=== PATIENT | female | born 1995 | race African-American/Black ===

== ENCOUNTER 2017-02-02 09:48 | Emergency (ER) | payer OTHER ==
[~2017-02-02] VITALS: Ht 152.4 cm; Wt 77.5 kg
[~2017-02-02 09:48] MED LIST: ADVAIR 100/501 DISK IH; COLACE100 MG PO; DULERA 200 MCG/13 GM IH; PREDNISONE50 MG PO; PROVENTIL,2.5 MG/3 M IH; SINGULAIR10 MG PO; VENTOLIN HFA18 GM IH; ZITHROMAX250 MG PO
[2017-02-02 11:24] LABS: INFLUENZA A VIRAL ANTIGEN NEGATIVE; INFLUENZA B VIRAL ANTIGEN NEGATIVE
[2017-02-02] MEDS ORDERED: ZOFRAN ODT4 MG PO (12:17)
[2017-02-02] MEDS ORDERED: MOTRIN800 MG PO (12:17)
[2017-02-02] MEDS ORDERED: PREDNISONE20 MG PO (12:17)
[2017-02-02] MEDS ORDERED: TAMIFLU75 MG PO (12:17)
[2017-02-02 12:40] VITALS: BP 123/69
== END 2017-02-02 12:41 | disposition home or self-care (01) ==
LOC: EME 09:48
PROVIDERS: Physician Assistant
DX: J11.1 Influenza due to unidentified influenza virus with other respiratory manifestations (principal)
CPT/HCPCS: 87502; 99281; 99284; J1885

== ENCOUNTER 2017-02-05 10:22 | Emergency (ER) | payer OTHER ==
[~2017-02-05] VITALS: Ht 152.4 cm; Wt 77.9 kg
[~2017-02-05 10:22] MED LIST changes: +MOTRIN800 MG PO; +PREDNISONE20 MG PO; +TAMIFLU75 MG PO; +ZOFRAN ODT4 MG PO
[2017-02-05 12:18] LABS: HEMATOCRIT 37.6 % (36.0-46.0); MCH 26.2 PG (29.0-34.0); MCHC 31.9 G/DL (30.0-36.0); MCV 82.1 FL (83-99); RBC DIS.WIDTH-SD 45.1 % (39-53); RED BLOOD COUNT 4.58 M/uL (3.80-5.20); WHITE BLOOD COUNT 18.6 K/uL (4.1-10.2)
[2017-02-05 12:21] LABS: INFLUENZA A VIRAL ANTIGEN NEGATIVE; INFLUENZA B VIRAL ANTIGEN NEGATIVE
[2017-02-05 12:30] LABS: CHLORIDE 106 mEq/L (99-109); POTASSIUM 3.5 mEq/L (3.7-5.4); SODIUM 140 mEq/L (136-147)
[2017-02-05 12:32] LABS: GLUCOSE 83 mg/dL (70-99)
[2017-02-05 12:33] LABS: ANION GAP 10 MEQ/L (2-14)
[2017-02-05 12:34] LABS: TOTAL BILIRUBIN 0.6 mg/dL (0.0-1.0)
[2017-02-05 12:36] LABS: ALKALINE PHOSPHATASE 71 IU/L (3-129); GFR ESTIMATE (CALCULATED) > 59 mL/min/
[2017-02-05 12:37] LABS: UREA NITROGEN (BUN) 13 mg/dL (9-23)
[2017-02-05 12:44] LABS: QUANTITATIVE HCG < 4.0 MIU/ML
[2017-02-05 14:09] LABS: MEAN PLAT.VOLUME 11.3 uM^3 (9.5-12.4); PLAT.SUFFICIENCY ADEQUATE; PLATELET COUNT 259 K/uL (156-360)
[2017-02-05 14:24] LABS: ADD MIUA? YES; BILIRUBIN NEGATIVE; BLOOD NEGATIVE; COLOR YELLOW ((YELLOW)); GLUCOSE (STRIP) NEGATIVE; KETONES 20; LEUKOCYTES SMALL; NITRITE NEGATIVE; PROTEIN (STRIP) 30; SPECIFIC GRAVITY 1.017 (1.000-1.030); UROBILINOGEN 0.2 MG/DL (0.2-1.0)
[2017-02-05 14:25] LABS: INTERNAL CONTROL VALID? YES
[2017-02-05] MEDS ORDERED: AUGMENTIN875 MG PO (14:54)
[2017-02-05 15:26] VITALS: BP 115/70
[2017-02-05 16:00] LABS: BACTERIA 2+ /HPF; EPITHELIAL CELLS 1+ /HPF; MUCUS 1+ /LPF; RED BLOOD CELLS 0-5 /HPF (0-5)
== END 2017-02-05 15:29 | disposition home or self-care (01) ==
LOC: EME 10:22
PROVIDERS: Nurse Practitioner Family; Physician Assistant
DX: N39.0 Urinary tract infection, site not specified (principal); J45.909 Unspecified asthma, uncomplicated
CPT/HCPCS: 71020; 80053; 81003; 83605; 84702; 84703; 85027; 87040; 87502; 87801; 99281; 99284; J7030

== ENCOUNTER 2017-02-07 14:45 | Emergency (ER) | payer OTHER ==
[~2017-02-07] VITALS: Ht 152.4 cm; Wt 79.2 kg
[~2017-02-07 14:45] MED LIST changes: +AUGMENTIN875 MG PO
[2017-02-07 14:53] VITALS: BP 94/64
[2017-02-07] MEDS ORDERED: CLEOCIN150 MG PO (18:06)
== END 2017-02-07 18:23 | disposition home or self-care (01) ==
LOC: EME 14:45 → EXP 14:45
DX: L53.9 Erythematous condition, unspecified (principal); R21 Rash and other nonspecific skin eruption; N39.0 Urinary tract infection, site not specified; Z87.09 Personal history of other diseases of the respiratory system; J45.909 Unspecified asthma, uncomplicated
CPT/HCPCS: 99281; 99284

== ENCOUNTER 2017-09-16 16:34 | Emergency (ER) | payer OTHER ==
[~2017-09-16] VITALS: Ht 152.4 cm; Wt 82.9 kg
[~2017-09-16 16:34] MED LIST changes: +CLEOCIN150 MG PO
[2017-09-16 17:19] LABS: HEMATOCRIT 34.4 % (36.0-46.0); MCHC 31.4 G/DL (30.0-36.0); MCV 82.9 FL (83-99); MEAN PLAT.VOLUME 10.9 uM^3 (9.5-12.4); PLATELET COUNT 218 K/uL (156-360); RBC DIS.WIDTH-CV 15.9 % (11.8-14.6); RBC DIS.WIDTH-SD 48.3 % (39-53); RED BLOOD COUNT 4.15 M/uL (3.80-5.20); WHITE BLOOD COUNT 7.8 K/uL (4.1-10.2)
[2017-09-16 17:27] LABS: CHLORIDE 110 mEq/L (99-109); POTASSIUM 3.9 mEq/L (3.7-5.4); SODIUM 141 mEq/L (136-147)
[2017-09-16 17:30] LABS: GLUCOSE 78 mg/dL (70-99)
[2017-09-16 17:31] LABS: ANION GAP 6 MEQ/L (2-14)
[2017-09-16 17:32] LABS: TOTAL BILIRUBIN 0.2 mg/dL (0.0-1.0)
[2017-09-16 17:33] LABS: ALKALINE PHOSPHATASE 67 IU/L (3-129); GFR ESTIMATE (CALCULATED) > 59 mL/min/
[2017-09-16 17:35] LABS: UREA NITROGEN (BUN) 9 mg/dL (9-23)
[2017-09-16 17:42] LABS: QUANTITATIVE HCG < 4.0 MIU/ML
[2017-09-16 18:17] LABS: ADD MIUA? NO; BILIRUBIN NEGATIVE; BLOOD NEGATIVE; COLOR STRAW ((YELLOW)); GLUCOSE (STRIP) NEGATIVE; KETONES NEGATIVE; LEUKOCYTES NEGATIVE; NITRITE NEGATIVE; PROTEIN (STRIP) NEGATIVE; UROBILINOGEN 0.2 MG/DL (0.2-1.0)
[2017-09-16] MEDS ORDERED: PEPCID20 MG PO (19:28)
[2017-09-16 19:43] VITALS: BP 121/67
[2017-09-18 13:14] LABS: NEISSERIA GONORRHOEAE NEGATIVE
[2017-09-18 13:15] LABS: CHLAMYDIA TRACHOMATIS NEGATIVE
== END 2017-09-16 19:44 | disposition home or self-care (01) ==
LOC: EME 16:34
PROVIDERS: Physician Assistant
DX: R10.9 Unspecified abdominal pain (principal); J45.901 Unspecified asthma with (acute) exacerbation; R11.2 Nausea with vomiting, unspecified; R09.81 Nasal congestion; N89.8 Other specified noninflammatory disorders of vagina
CPT/HCPCS: 80053; 81003; 84702; 85027; 87210; 87491; 87591; 94640; 99281; 99285; J1100

== ENCOUNTER 2017-10-06 12:43 | Emergency (ER) | payer OTHER ==
[~2017-10-06] VITALS: Ht 152.4 cm; Wt 82.4 kg
[~2017-10-06 12:43] MED LIST changes: +PEPCID20 MG PO
[2017-10-06 13:03] VITALS: BP 100/70
[2017-10-06] MEDS ORDERED: BACTRIM,SEPT1 TABLET PO (16:17)
== END 2017-10-06 16:44 | disposition home or self-care (01) ==
LOC: EME 12:43
PROC: 0H98XZZ Drainage of Buttock Skin, External Approach (ICD-10-PCS; principal; 2017-10-06)
DX: L05.01 Pilonidal cyst with abscess (principal); J45.909 Unspecified asthma, uncomplicated
CPT/HCPCS: 99281; 99284

== ENCOUNTER 2017-11-26 07:22 | Emergency (ER) | payer OTHER ==
[~2017-11-26] VITALS: Ht 152.4 cm; Wt 86.5 kg
[~2017-11-26 07:22] MED LIST changes: +BACTRIM,SEPT1 TABLET PO
[2017-11-26 08:06] LABS: BASOPHIL (%) 0.7 % (0-1); EOSINOPHIL (%) 3.5 % (0-5); EOSINOPHIL COUNT 0.2 K/uL (0-0.3); HEMATOCRIT 34.1 % (36.0-46.0); HEMOGLOBIN 10.6 G/DL (11.9-15.5); IMMATURE GRANULOCYTE (%) 0.2 % (0.0-0.7); LYMPHOCYTE (%) 32.9 % (15-42); MCH 25.9 PG (29.0-34.0); MCHC 31.1 G/DL (30.0-36.0); MCV 83.4 FL (83-99); MONOCYTE (%) 7.9 % (3-12); MONOCYTE COUNT 0.5 K/uL (0-0.8); NEUTROPHIL (%) 54.8 % (45-76); NEUTROPHIL COUNT 3.2 K/uL (1.8-6.4); PLATELET COUNT 251 K/uL (156-360); RBC DIS.WIDTH-CV 15.4 % (11.8-14.6); RBC DIS.WIDTH-SD 46.7 % (39-53); RED BLOOD COUNT 4.09 M/uL (3.80-5.20); WHITE BLOOD COUNT 5.9 K/uL (4.1-10.2)
[2017-11-26 08:22] LABS: APPEARANCE SL.HAZY ((CLEAR)); BILIRUBIN NEGATIVE; BLOOD SMALL; COLOR YELLOW ((YELLOW)); GLUCOSE (STRIP) NEGATIVE; KETONES NEGATIVE; LEUKOCYTES TRACE; NITRITE NEGATIVE; PROTEIN (STRIP) NEGATIVE; SPECIFIC GRAVITY 1.015 (1.000-1.030); UROBILINOGEN 0.2 MG/DL (0.2-1.0)
[2017-11-26 08:28] LABS: ALBUMIN 3.8 g/dL (3.2-4.8); CHLORIDE 109 mEq/L (99-109); POTASSIUM 4.4 mEq/L (3.7-5.4); SODIUM 138 mEq/L (136-147)
[2017-11-26 08:30] LABS: GLUCOSE 83 mg/dL (70-99); TOTAL PROTEIN 6.7 g/dL (6.4-8.3)
[2017-11-26 08:30] LABS: BACTERIA NONE SEEN /HPF; EPITHELIAL CELLS 2+ /HPF; MUCUS NONE SEEN /LPF; RED BLOOD CELLS 0-5 /HPF (0-5); UCUL ADDED? NO; WHITE BLOOD CELLS 0-5 /HPF (0-5)
[2017-11-26 08:32] LABS: TOTAL BILIRUBIN 0.2 mg/dL (0.0-1.0)
[2017-11-26 08:34] LABS: ALKALINE PHOSPHATASE 63 IU/L (3-129); CREATININE 0.8 mg/dL (0.6-1.3); GFR ESTIMATE (CALCULATED) > 59 mL/min/
[2017-11-26 08:35] LABS: UREA NITROGEN (BUN) 12 mg/dL (9-23)
[2017-11-26 08:36] LABS: AST (GOT) 33 IU/L (2-34)
[2017-11-26 08:37] LABS: ALT (GPT) 45 IU/L (3-49); LIPASE 28 U/L (1.0-51.0)
[2017-11-26 08:43] LABS: QUANTITATIVE HCG < 4.0 MIU/ML
[2017-11-26 09:33] VITALS: BP 105/64
== END 2017-11-26 09:34 | disposition home or self-care (01) ==
LOC: EME 07:22
PROVIDERS: Emergency Medicine
DX: R10.9 Unspecified abdominal pain (principal); N93.9 Abnormal uterine and vaginal bleeding, unspecified; J45.909 Unspecified asthma, uncomplicated
CPT/HCPCS: 80053; 81003; 83690; 84702; 85025

== ENCOUNTER 2018-02-14 15:05 | Inpatient (IN) | payer OTHER ==
[~2018-02-14] VITALS: Ht 152.4 cm; Wt 85.5 kg
[2018-02-14 15:38] LABS: HEMATOCRIT 34.6 % (36.0-46.0); HEMOGLOBIN 11.2 G/DL (11.9-15.5); MCH 26.5 PG (29.0-34.0); MCHC 32.4 G/DL (30.0-36.0); RBC DIS.WIDTH-CV 15.3 % (11.8-14.6); RBC DIS.WIDTH-SD 45.8 % (39-53); RED BLOOD COUNT 4.22 M/uL (3.80-5.20); WHITE BLOOD COUNT 8.4 K/uL (4.1-10.2)
[2018-02-14 15:49] LABS: CHLORIDE 109 mEq/L (99-109); POTASSIUM 4.2 mEq/L (3.7-5.4); SODIUM 141 mEq/L (136-147)
[2018-02-14 15:51] LABS: GLUCOSE 69 mg/dL (70-99)
[2018-02-14 15:54] LABS: SERUM ETHYL ALCOHOL < 10 mg/dL
[2018-02-14 15:55] LABS: CREATININE 0.7 mg/dL (0.6-1.3); GFR ESTIMATE (CALCULATED) > 59 mL/min/; UREA NITROGEN (BUN) 13 mg/dL (9-23)
[2018-02-14] MEDS ORDERED: IBUPROFEN800 MG PO (15:59)
[2018-02-14] MEDS ORDERED: BREO ELLIPTA I1 EACH IH (16:03)
[2018-02-14 16:35] LABS: PLAT.SUFFICIENCY ADEQUATE; PLATELET COUNT 206 K/uL (156-360)
[2018-02-14 16:57] LABS: APPEARANCE CLOUDY ((CLEAR)); BILIRUBIN NEGATIVE; BLOOD NEGATIVE; COLOR YELLOW ((YELLOW)); GLUCOSE (STRIP) NEGATIVE; KETONES NEGATIVE; LEUKOCYTES LARGE; NITRITE NEGATIVE; PROTEIN (STRIP) NEGATIVE; SPECIFIC GRAVITY 1.008 (1.000-1.030); UROBILINOGEN 0.2 MG/DL (0.2-1.0)
[2018-02-14 17:05] LABS: AMPHETAMINE NEGATIVE (500 ng/mL); BARBITURATES NEGATIVE (200 ng/mL); BENZODIAZEPINES NEGATIVE (150 ng/mL); BUPRENORPHINE NEGATIVE (10 ng/mL); COCAINE NEGATIVE (150 ng/mL); METHADONE NEGATIVE (200 ng/mL); METHAMPHETAMINE NEGATIVE (500 ng/mL); OPIATES (MORPHINE) NEGATIVE (100 ng/mL); OXYCODONE NEGATIVE (100 ng/mL); PHENCYCLIDINE NEGATIVE (25 ng/mL); PROPOXYPHENE NEGATIVE (300 ng/mL); THC CANNABINOIDS NEGATIVE (50 ng/mL); TRICYCLIC ANTIDEPRESSANTS NEGATIVE (300 ng/mL)
[2018-02-14 17:17] LABS: EPITHELIAL CELLS 2+ /HPF; MUCUS NONE SEEN /LPF; RED BLOOD CELLS NONE SEEN /HPF (0-5); WHITE BLOOD CELLS 20-30 /HPF (0-5)
[2018-02-14 17:18] LABS: BACTERIA 2+ /HPF; UCUL ADDED? YES
[2018-02-14 18:04] VITALS: BP 122/63
[2018-02-15 07:57] VITALS: BP 103/54
== END 2018-02-15 13:10 | disposition home or self-care (01) | DRG 882 ==
LOC: EME 15:05 → 1WEST 16:47 → EDOF 16:47 → 1WEST 18:01 → ENRESERV 18:01 → 1WEST 02-15 08:33
PROVIDERS: Emergency Medicine
DX: F43.20 Adjustment disorder, unspecified (principal); R45.851 Suicidal ideations; R45.850 Homicidal ideations; J45.909 Unspecified asthma, uncomplicated; Z81.8 Family history of other mental and behavioral disorders
CPT/HCPCS: 80048; 81003; 81025; 85027; 87086; 90839; 97150 GO; 97165 GO; 99281; 99285; G0480